=== PATIENT | male | born 1990 | race Caucasian/White ===

== ENCOUNTER 2023-03-17 21:38 | Emergency (ER) | payer OTHER ==
[2023-03-17 21:52] VITALS: BP 138/84; PULSE 114; RESP 18; TEMP 97.2
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
== END 2023-03-17 22:17 | disposition other institution (70) ==
LOC: EC 21:38
DX: Z02.79 Encounter for issue of other medical certificate (principal); V89.2XXA Person injured in unspecified motor-vehicle accident, traffic, initial encounter; Y92.411 Interstate highway as the place of occurrence of the external cause
CPT/HCPCS: 99284